=== PATIENT | female | born 1980 | race Caucasian/White ===

== ENCOUNTER 2016-12-17 04:35 | Inpatient (IN) | payer OTHER ==
[2016-12-17] MEDS ORDERED: TERBUTALINE SULFATE 1 MG/ML VIAL IV PRN (04:52)
[2016-12-17] MEDS ORDERED: LIDOCAINE 1% 30 ML SDV SC PRN (04:52)
[2016-12-17] MEDS ORDERED: LR 1,000 ML IV PRN (04:52)
[2016-12-17] MEDS ORDERED: IBUPROFEN 600 MG TAB PO PRN (04:52)
[2016-12-17] MEDS ORDERED: EPSOM SALT 454 GM TP PRN (04:52)
[2016-12-17] MEDS ORDERED: OXYTOCIN/RINGERS LACTATE 1,000 ML IV PRN (04:52)
[2016-12-17] MEDS ORDERED: OLIVE OIL 118 ML BTL MISC PRN (04:52)
[2016-12-17] MEDS ORDERED: LIDOCAINE 1% 30 ML SDV ONE (05:03)
[2016-12-17] MEDS ORDERED: MISOPROSTOL 200 MCG TAB ONE (05:04)
[2016-12-17] MEDS ORDERED: OLIVE OIL 118 ML BTL ONE (05:04)
[2016-12-17] MEDS ORDERED: AMMONIA AROMATIC 1 EACH AMP IH ONE (05:04)
[2016-12-17] MEDS ORDERED: TERBUTALINE SULFATE 1 MG/ML VIAL ONE (05:04)
[2016-12-17] MEDS ORDERED: OXYTOCIN 10 UNIT/ML VIAL ONE ×2 (05:04→16:39)
[2016-12-17 05:15] LABS: % IMMATURE GRANULYOCYTES 0.7 % (0.0-1.1); ABSOLUTE IMMATURE GRANULOCYTES 0.08 10^3/uL (0.00-0.10); ADD DIFF? NO; ADD MORPH? NO; ADD SCAN? NO; ATYPICAL LYMPHOCYTE FLAG 10 (0-99); FRAGMENT RBC FLAG 0 (0-99); HEMATOCRIT 38.9 % (38.0-47.0); HEMOGLOBIN 13.1 g/dL (12.6-16.3); LEFT SHIFT FLG 0 (0-99); LIPEMIA HEMOLYSIS FLAG 80 (0-99); MEAN CELL HEMOGLOBIN 32.3 pg (27.9-34.1); MEAN CELL HEMOGLOBIN CONCENTR. 33.7 g/dL (32.4-36.7); MEAN PLATELET VOLUME 10.4 fL (8.7-11.7); PLATELET CLUMPS FLAG 10 (0-99); PLATELET COUNT 142 10^3/uL (150-400); RED BLOOD CELL COUNT 4.05 10^6/uL (4.18-5.33); RED CELL DISTRIBUTION WIDTH 14.4 % (11.5-15.2)
[2016-12-17] MEDS ORDERED: fentaNYL 100 MCG/2 ML INJ ONE (05:19)
[2016-12-17] MEDS ORDERED: fentaNYL 2MCG/ML/BUP 0.1% RTU 100 ML BAG EP ONE (05:20)
[2016-12-17] MEDS ORDERED: PHENYLEPHRINE HCL 100 MCG/ML SYR ONE (05:23)
[2016-12-17] MEDS ORDERED: PHENYLEPHRINE HCL 100 MCG/ML SYR IVP PRN (05:58)
[2016-12-17] MEDS ORDERED: NALOXONE HCL 0.4 MG/ML INJ IVP PRN (05:58)
[2016-12-17] MEDS ORDERED: LR 500 ML IV SCH (06:00)
[2016-12-17] MEDS ORDERED: fentaNYL 2MCG/ML/BUP 0.1% RTU 100 ML EP SCH (06:00)
--- NOTE | 2016-12-17 07:57 | OBPROG ---
OBG Progress Note Assessment/Plan: Assessment: cat1 fhr pain well managed vs wnl exam 10100/+2 station no pressure sensation yet probable leaking of fluid yesterday at 1800 none since then clear at that time per patient contractions q2-4 Plan:expectant management of labor 12/17/16 07:55 Subjective: Feeling comfortable after epidural. Denies feeling pressure. Doing well Objective: 12/17/16 04:45 Patient ABO/Rh A POSITIVE 12/17/16 04:45 - SVE Dilation (cm): 10 Effacement (%): 100 Station: +2 Current Contraction Pattern: Regular FHR (bpm): 125 FHR Pattern Variability: Moderate FHR Category: 1 Membranes: SROM Amniotic Fluid Color: Clear ICD10 Worksheet Patient Problems: Problems Problem Status Onset term labor Acute
[2016-12-17] MEDS ORDERED: SIMETHICONE 80 MG TAB CHEW PO PRN (09:51)
[2016-12-17] MEDS ORDERED: DOCUSATE SODIUM 100 MG CAP PO PRN (09:51)
[2016-12-17] MEDS ORDERED: HYDROCODONE/APAP 5/325 TAB PO PRN (09:51)
[2016-12-17] MEDS ORDERED: HYDROCORTISONE 0.5% CREAM TP PRN (09:51)
[2016-12-17] MEDS ORDERED: METHYLERGONOVINE MAL 0.2 MG/ML INJ IM ONE (09:53)
--- NOTE | 2016-12-17 09:56 | OBPROC ---
- Labor and Delivery Onset of Contractions Date: 12/17/16 Onset of Contractions Time: 03:00 Onset of Contractions Type: Spontaneous Rupture of Membranes Date: 12/16/16 Rupture of Membranes Time: 18:00 Rupture of Membranes Type: Spontaneous Amniotic Fluid Color: Clear Dilation Complete Time: 07:15 Delivery Type: Spontaneous Placenta Delivery Date: 12/17/16 Placenta Delivery Time: 09:39 Episiotomy/Laceration: 2nd Degree Repair: 3-0, Vicryl EBL: 450 Complications: None - Medications Anesthesia: Epidural - Info Infant A Delivery Date: 12/17/16 Delivery Time: 20:03 Sex of Infant: Female Score (1 Min): 8 Score (5 Min): 9
[2016-12-17] MEDS: METHYLERGONOVINE MAL 0.2 MG TAB PO SCH ×2 (15:35→21:59)
[2016-12-17] MEDS: ACETAMINOPHEN 325 MG TAB PO PRN ×2 (17:41→20:16)
[2016-12-17 20:51] VITALS: PULSE 100
[2016-12-18] MEDS: METHYLERGONOVINE MAL 0.2 MG TAB PO SCH ×2 (04:15→10:38)
[2016-12-18] MEDS: ACETAMINOPHEN 325 MG TAB PO PRN ×2 (04:15→08:45)
--- NOTE | 2016-12-18 08:26 | OBPROG ---
OBG Progress Note Assessment/Plan: Assessment: 1) s/p PPD # 1-pt is stable 2) Anemia - pt is asymptomatic Plan: Continue routine pp care Plan for d/c home later today Instructions reviewed with pt Rx given for [place] Cont PNV Pelvic rest RTC in 4 and 6 weeks for pp visit 12/18/16 08:24 Subjective: Pt seen and examined. Doing well with no complaints. Minimal cramping, moderate lochia. Carlos regular diet, voiding and passing flatus. NO BM. without difficulty. Wants to go home today. Objective: 12/18/16 04:15 Patient ABO/Rh A POSITIVE 12/17/16 04:45 Temp Pulse Resp BP Pulse Ox 36.9 C 100 20 110/66 96 12/17/16 20:00 12/17/16 20:00 12/17/16 20:00 12/17/16 20:00 12/17/16 20:00 Uterine Position/Fundal Height: Umbilicus -2 Uterine Tone: Firm - Physical Exam General Appearance: WD/WN, alert Respiratory: lungs clear, normal breath sounds Cardiac/Chest: regular rate, rhythm Abdomen: normal bowel sounds, non-tender, soft, flatus (+) Genitourinary: laceration (intact), lochia (moderate) Extremities: non-tender, normal inspection Neuro/Psych: alert, normal mood/affect, oriented x 3 ICD10 Worksheet Patient Problems: Problems Problem Status Onset (spontaneous vaginal delivery) Acute term labor Acute
[2016-12-18 11:34] VITALS: BP 119/73; RESP 18; TEMP 98.2; O2SAT 95
== END 2016-12-18 16:20 | disposition home or self-care (01) | DRG 775 ==
LOC: OBSVTOIN 04:35 → FNSY 04:35 → FLD 04:50 → FOB 14:29
PROVIDERS: ADMIT Obstetrics & Gynecology; ATTEND Obstetrics & Gynecology
DX: O70.1 Second degree perineal laceration during delivery (principal); O90.81 Anemia of the puerperium; Z3A.38 38 weeks gestation of pregnancy; Z37.0 Single live birth
CPT/HCPCS: J2370; J2590; J3010; J3105

== ENCOUNTER → 2018-12-09 | Outpatient (CLI) | payer OTHER | LOC: FIMAGING 08:59 | PROVIDERS: ATTEND Obstetrics & Gynecology | DX: Z12.31 Encounter for screening mammogram for malignant neoplasm of breast (principal); Z80.3 Family history of malignant neoplasm of breast ==